=== PATIENT | female | born 1960 | race Caucasian/White ===

== ENCOUNTER 2017-05-31 09:00 | Day surgery (SDC) | payer MEDICARE ==
--- NOTE | 2017-05-31 08:42 | Discharge Summary ---
Short Stay Discharge Plan Activity: no restrictions Weight Bearing Status: Full Weight Bearing Diet: regular Wound: remove dressing (72hrs and may shower) Follow up with: ELEANOR CANADA MD [Primary Care Provider] - 6 Weeks WORK,JESSICA Chappell JR, MD [Staff Physician] - 7 Days
--- NOTE | 2017-05-31 08:43 | Short Stay Summary ---
Short Stay Documentation Date of service: 05/31/17 - Allergies and Medications Current Medications: Allergies No Known Allergies Allergy (Verified 05/27/17 13:26) Home Medications Medication Instructions Recorded Confirmed Last Taken Type Hydroxyzine HCl 25 mg PO DAILY PRN 05/27/17 05/27/17 Unknown History Sertraline [Zoloft] 100 mg PO QDAY 05/27/17 05/27/17 Unknown History Triamterene/Hydrochlorothiazid 1 each PO DAILY 05/27/17 05/27/17 Unknown History [Triamterene-Hctz 37.5-25 mg Cp] - Brief post op/procedure progress note Date of procedure: 05/31/17 Pre-op diagnosis: macromastia Post-op diagnosis: same Procedure: Jeancarlos. Breast Reduction with NAC Amputation Anesthesia: GETA Surgeon: JESSICA MIMS JR Estimated blood loss: 50-100ml Specimen disposition: to lab Condition: stable - Disposition Condition at discharge: Good Disposition: DC-01 TO HOME OR SELFCARE Short Stay Discharge Plan Follow up with: JESSICA MIMS JR, MD [Staff Physician] - 7 Days ELEANOR CANADA MD [Primary Care Provider] - 6 Weeks
[2017-05-31] MEDS ORDERED: NACL BACTERIOSTATIC INFILTRATI ONE (10:07)
--- NOTE | 2017-05-31 10:42 | Anesthesia Day of Surgery ---
Anesthesia Day of Surgery - Day of Surgery Patient Examined: Yes Patient H&P Reviewed: Yes Patient is NPO: Yes
--- NOTE | 2017-05-31 10:42 | Anesthesia Consultation ---
Anesthesia Consult and Med Hx - Airway Anesthetic Teeth Evaluation: Caps (#8) ROM Head & Neck: Adequate Mental/Hyoid Distance: Adequate Mallampati Class: Class III Intubation Access Assessment: Possibly Difficult - Pulmonary Exam CTA: Yes - Cardiac Exam Cardiac Exam: RRR - Pre-Operative Health Status ASA Pre-Surgery Classification: ASA3 Proposed Anesthetic Plan: General (no previous anesthesia problems) - Pulmonary Hx Smoking: Yes (1/2 PPD, SINCE AGE 35) - Cardiovascular System Hx Hypertension: Yes (20 YEARS) - Central Nervous System Hx Psychiatric Problems: Yes (takes meds) - Other Systems Hx Alcohol Use: Yes (SOCIALLY) Hx Substance Use: No Hx Cancer: No Hx Obesity: Yes (morbid obesity)
[2017-05-31] MEDS ORDERED: LACTATED RINGERS 1,000 ML ONE ×2 (10:45→12:42)
[2017-05-31] MEDS ORDERED: LACTATED RINGERS 1,000 ML IV SCH (10:47)
[2017-05-31] MEDS ORDERED: VERSED IV NR (10:48)
[2017-05-31] MEDS ORDERED: PEPCID IV NR (10:48)
[2017-05-31] MEDS ORDERED: DILAUDID ONE (10:52)
[2017-05-31] MEDS ORDERED: DIPRIVAN 10 MG/ML IV ONE ×2 (10:52→10:56)
[2017-05-31] MEDS ORDERED: XYLOCAINE MPF 2% ONE (10:52)
[2017-05-31] MEDS ORDERED: ZEMURON IV ONE (10:52)
[2017-05-31] MEDS ORDERED: ANCEF/STERILE WATER 2 GM/20 ML IV NR (11:00)
[2017-05-31] MEDS ORDERED: ZOFRAN ONE (12:21)
[2017-05-31] MEDS: DILAUDID IV PRN ×2 (13:25→13:40)
[2017-05-31] MEDS ORDERED: TORADOL IV PRN (13:26)
[2017-05-31] MEDS ORDERED: SUBLIMAZE IV PRN (13:26)
[2017-05-31] MEDS ORDERED: ZOFRAN IV PRN (13:26)
--- NOTE | 2017-05-31 13:26 | Post Anesthesia Evaluation ---
- Post Anesthesia Evaluation Patient Participated: Yes Airway Patent: Yes Stable Respiratory Function: Yes Nausea/Vomiting: No Temp > 96.8F: Yes Pain Manageable: Yes Adequeate Hydration: Yes Anesthesia Complications: No
[2017-05-31] MEDS ORDERED: KETALAR ONE (13:32)
--- NOTE | 2017-05-31 13:51 | Operative Report ---
PREOPERATIVE DIAGNOSIS: Macromastia. POSTOPERATIVE DIAGNOSIS: Macromastia. PROCEDURE: Bilateral reduction mammoplasty with nipple-areolar complex amputation. SURGEON: Armando Garcia MD RESIDENTIAL PROGRAM COORDINATOR: Jonny Lozano CSA FINDINGS: 1180 gm removed from the left breast, 920 gm removed from the right breast. DESCRIPTION OF PROCEDURE: The patient was brought to the operating room and placed on the table in supine position. Following administration of general anesthesia, bilateral breasts were prepped with Betadine solution and draped in the usual sterile manner. A #10 blade scalpel was used to make a circumareolar skin incision followed by de-epithelization of inferior dermal pedicle. Modified Talamantes pattern skin markings were incised with scalpel, deepened through subcutaneous, fat and breast tissue using the electrocautery. Skin flaps were raised in standard manner as was fashioning of an inferior central mound pedicle. Breast tissue was resected inclusive of bilateral nipple-areolar complexes due to the patient's history of recent smoking and long inframammary fold to nipple-areolar complex distance. Closure over 10-mm Sal drain was performed using interrupted and running subcuticular 2-0 Monocryl sutures. Mastisol, Steri-Strips, and sterile dressings applied. The patient tolerated the procedure well and returned to recovery room in stable condition. JOB# [id number]
[2017-05-31] MEDS ORDERED: BENADRYL ONE (13:59)
[2017-05-31] MEDS ORDERED: BENADRYL IV ONE (14:06)
[2017-05-31] MEDS ORDERED: PERCOCET 5/325 PO SCH (15:21)
[2017-05-31 17:43] VITALS: BP 128/91
== END 2017-05-31 16:33 | disposition home or self-care (01) ==
LOC: OR 09:00
PROVIDERS: ATTEND Plastic Surgery
DX: N62 Hypertrophy of breast (principal); N64.4 Mastodynia; N60.12 Diffuse cystic mastopathy of left breast; N60.11 Diffuse cystic mastopathy of right breast; I10 Essential (primary) hypertension; F32.9 Major depressive disorder, single episode, unspecified; F17.210 Nicotine dependence, cigarettes, uncomplicated; E66.01 Morbid (severe) obesity due to excess calories; Z68.39 Body mass index [BMI] 39.0-39.9, adult; Z91.018 Allergy to other foods
CPT/HCPCS: 19318; 88305; J0690; J1170; J1200; J2250; J2405; J2704; J7120